=== PATIENT | male | born 1990 | race Caucasian/White ===

== ENCOUNTER 2018-07-15 13:24 | Observation (INO) | payer SELFPAY ==
[2018-07-15 14:48] LABS: BUN Blood Urea Nitrogen 12 mg/dL (7-18); Bicarbonate 28 mmol/L (21-32); Glucose Level 97 mg/dL (74-106); Potassium 3.7 mmol/L (3.5-5.1); Sodium Level 140 mmol/L (136-145)
[2018-07-15 14:57] LABS: Absolute Lymphocytes (CBC) 1.5 K/uL (0.7-4.9); Absolute Monocytes 1.1 K/uL (0.1-1.3); Absolute Neutrophil 10.1 K/uL (1.8-8.0); Basophils % 0.5 % (0-1.3); Eosinophils % 0.8 % (0-4.4); Hematocrit 38.2 % (39.6-49.0); Lymphocytes % 11.3 % (15.3-44.8); MCV 98.4 fL (80-100); MPV 7.9 fL (7.6-11.3); Monocytes % 8.3 % (3.3-12.3); RBC Red Blood Cell Count 3.89 M/uL (4.33-5.43)
[2018-07-15] MEDS ORDERED: HYDROCODONE/APAP 7.5/325 MG TAB ONE (15:12)
--- NOTE | 2018-07-15 15:45 | RAD REPORT ---
EXAM DESCRIPTION: RAD - Elbow Right 3 View - 07/15/2018 2:39 pm CLINICAL HISTORY: Elbow pain FINDINGS: Soft tissue swelling is present. A true lateral view of the elbow was not obtained limiting evaluation No gross fracture or dislocation is seen
--- NOTE | 2018-07-15 15:46 | RAD REPORT ---
EXAM DESCRIPTION: RAD - Forearm Right - 07/15/2018 2:39 pm CLINICAL HISTORY: Right arm pain FINDINGS: No fracture is seen involving the forearm.
[2018-07-15] MEDS ORDERED: CLINDAMYCIN 600MG/D5W 600 MG/50 ML BAG IV ONE (15:49)
--- NOTE | 2018-07-15 16:35 | ER ---
Nurse's Notes [facility] Name: David Russ Age: 27 yrs Sex: Male : 1990 Arrival Date: 07/15/2018 Time: 13:27 Bed 8 Private MD: Diagnosis: Cellulitis of right upper limb;Cutaneous abscess of right upper limb Presentation: 07/15 13:40 Presenting complaint: Patient states: R ELBOW INJURY. Transition of care: patient was bp not received from another setting of care. Onset of symptoms was July 11, 2018. Risk Assessment: Do you want to hurt yourself or someone else? Patient reports no desire to harm self or others. Initial Sepsis Screen: Does the patient meet any 2 criteria? HR > 90 bpm. Does the patient have a suspected source of infection? Yes: Skin breakdown/wound. Care prior to arrival: None. 13:40 Method Of Arrival: Ambulatory bp 13:40 Acuity: MIKEL 3 bp Triage Assessment: 13:41 General: Appears distressed, uncomfortable, Behavior is calm, cooperative, appropriate bp for age. Pain: Complains of pain in right elbow. Musculoskeletal: Circulation, motion, and sensation intact. Range of motion: limited in right elbow Swelling present in right elbow. Injury Description: Deformity sustained to right elbow. Historical: - Allergies: 13:41 No Known Allergies; bp - Home Meds: 13:41 None [Active]; bp - PMHx: 13:41 None; bp - Immunization history:: Last tetanus immunization: < 5 years ago. - Social history:: Smoking status: Patient uses tobacco products, smokes one pack cigarettes per day. - Ebola Screening: : Patient negative for fever greater than or equal to 101.5 degrees Fahrenheit, and additional compatible Ebola Virus Disease symptoms Patient denies exposure to infectious person Patient denies travel to an Ebola-affected area in the 21 days before illness onset No symptoms or risks identified at this time. Screenin:01 Abuse screen: Denies threats or abuse. Denies injuries from another. Nutritional ss screening: No deficits noted. Tuberculosis screening: Never had TB. Fall Risk None identified. Assessment: 14:01 General: Appears uncomfortable, Behavior is calm, cooperative, Reports chills for 0-12 ss hours, Denies fever, feeling ill, fatigue. Pain: Complains of pain in right forearm and right arm and right elbow Pain currently is 0 out of 10 on a pain scale. at worst was 10 out of 10 on a pain scale. Quality of pain is described as pressure, tender, Pain began 2-3 days ago. Is intermittent. Neuro: Level of Consciousness is awake, alert, obeys commands, Oriented to person, place, time, situation. Cardiovascular: Heart tones S1 S2 present Capillary refill < 3 seconds is brisk in bilateral fingers Patient's skin is warm and dry. Chest pain is denied. Respiratory: Airway is patent Respiratory effort is even, unlabored, Respiratory pattern is regular, symmetrical, Breath sounds are clear bilaterally. Denies cough, shortness of breath pain with respiration, pain with cough, pain with movement. GI: Abdomen is non-distended. EENT: Oral mucosa is moist. Throat is clear. Derm: large area to R elbow and forearm noted to be red, swollen and warm to touch. Pt reports an injury that occurred Saturday when he fell onto R arm after slipping in mud. Patient states that redness and pain has been getting progressively worse since injury. Patient also reports that he took a "sterile razor" from home and attempted to drain his elbow and forearm. Denies drainage. Also reports that wounds to forearm were pustules that appeared yesterday, but scrapped off the whiteheads. Musculoskeletal: Circulation, motion, and sensation intact. Range of motion: Swelling present in right forearm and right elbow. 15:00 Reassessment: Patient appears in no apparent distress at this time. No changes from ss previously documented assessment. Patient and/or family updated on plan of care and expected duration. Pain level reassessed. 16:00 Reassessment: Patient appears in no apparent distress at this time. No changes from ss previously documented assessment. Patient is alert, oriented x 3, equal unlabored respirations, skin warm/dry/pink. 17:19 Reassessment: Patient appears in no apparent distress at this time. Patient and/or ss family updated on plan of care and expected duration. Pain level reassessed. Patient is alert, oriented x 3, equal unlabored respirations, skin warm/dry/pink. 18:00 Reassessment: attempted to call report to Vy. Was told she will call back soon for ss report. 18:20 Reassessment: report called to ASHIA Mcclellan. Vital Signs: 13:43 BP 145 / 92; Pulse 110; Resp 18; Temp 98.6; Pulse Ox 100% ; Weight 65.77 kg; Height 5 bp ft. 9 in. (175.26 cm); 14:41 BP 125 / 87; Pulse 102; Resp 19; Pulse Ox 100% on R/A; jb1 15:50 Resp 17; Temp 98.9(O); ss 13:43 Body Mass Index 21.41 (65.77 kg, 175.26 cm) bp ED Course: 13:27 Patient arrived in ED. as 13:41 Triage completed. bp 13:43 Arm band placed on left wrist. bp 13:44 Berenice Greer, ELYSE is PHCP. kb 13:44 Gabino Tucker MD is Attending Physician. kb 14:01 Patient has correct armband on for positive identification. Bed in low position. Call ss light in reach. 14:10 Inserted saline lock: 20 gauge in left antecubital area, using aseptic technique. Blood ss collected. 14:35 X-ray completed. Portable x-ray completed in exam room. Patient tolerated procedure ml well. 14:36 Elbow Right 3 View XRAY In Process Unspecified. EDMS 14:37 Forearm Right XRAY In Process Unspecified. EDMS 14:40 Teodora Love, ASHIA is Primary Nurse. ss 15:29 Patient taken to ultrasound. via wheelchair. aa4 15:36 US Extrmty Nonvasular Limited In Process Unspecified. EDMS 15:44 Patient moved back from ultrasound. aa4 15:52 Ultrasound completed. Patient tolerated well. lc3 16:33 Yoly Baugh MD is Hospitalizing Provider. kb 18:22 No provider procedures requiring assistance completed. Patient admitted, IV remains in ss place. Administered Medications: 15:10 Drug: [place] (7.5 mg-325 mg) 1 tabs Route: PO; sg 16:16 Follow up: Response: No adverse reaction; Pain is decreased ss 15:49 Drug: Clindamycin 600 mg Route: IVPB; Infused Over: 30 mins; Site: left antecubital; ss 16:23 Follow up: IV Status: Completed infusion ss Outcome: 16:34 Decision to Hospitalize by Provider. kb 18:23 Admitted to ss 18:23 Condition: good 18:23 Instructed on the need for admit. 18:25 Patient left the ED. ss Signatures: Dispatcher [employer] Koko Daly jb1 Berenice Greer, MACHINE GUNNER-C MACHINE GUNNER-Ckb Anthony Rodriguez, RN RN Sandra Cullen Melissa ml Frazier, Amanda aa4 Smirch, Shelby, RN RN ss Andrae Ramsay Brian, RN RN bp
--- NOTE | 2018-07-15 16:35 | EDPHYS ---
Physician Documentation [facility] Name: David Russ Age: 27 yrs Sex: Male : 1990 Arrival Date: 07/15/2018 Time: 13:27 Bed 8 Private MD: ED Physician Gabino Tucker HPI: 07/15 14:06 This 27 yrs old Male presents to ER via Ambulatory with complaints of Arm kb Injury. 14:06 The patient or guardian complains of injury, pain, swelling, tenderness. The complaints kb affect the right elbow and right forearm. Context: The problem was sustained outdoors, resulted from a fall. Onset: The symptoms/episode began/occurred 4 day(s) ago. Treatment prior to arrival includes: no previous treatment. Modifying factors: The symptoms are alleviated by nothing. the symptoms are aggravated by movement. Associated signs and symptoms: Pertinent positives: erythema, pain, swelling, warmth. Severity of symptoms: At their worst the symptoms were moderate, severe, in the emergency department the symptoms are unchanged. The patient has not experienced similar symptoms in the past. The patient has not recently seen a physician. Pt reports he fell onto his elbow on Saturday. reports redness and swelling with intermittent pain that has been getting worse since then. Thought it was an abscess so he poked a few areas with a needle last night, but nothing came out. Full ROM. Historical: - Allergies: 13:41 No Known Allergies; bp - Home Meds: 13:41 None [Active]; bp - PMHx: 13:41 None; bp - Immunization history:: Last tetanus immunization: < 5 years ago. - Social history:: Smoking status: Patient uses tobacco products, smokes one pack cigarettes per day. - Ebola Screening: : Patient negative for fever greater than or equal to 101.5 degrees Fahrenheit, and additional compatible Ebola Virus Disease symptoms Patient denies exposure to infectious person Patient denies travel to an Ebola-affected area in the 21 days before illness onset No symptoms or risks identified at this time. ROS: 14:06 Constitutional: Negative for fever, chills, and weight loss, Cardiovascular: Negative kb for chest pain, palpitations, and edema, Respiratory: Negative for shortness of breath, cough, wheezing, and pleuritic chest pain, Abdomen/GI: Negative for abdominal pain, nausea, vomiting, diarrhea, and constipation, Back: Negative for injury and pain, : Negative for injury, bleeding, discharge, and swelling, Neuro: Negative for headache, weakness, numbness, tingling, and seizure. 14:06 MS/extremity: Positive for injury or acute deformity, erythema, pain, swelling, tenderness, warmth, of the right forearm and right elbow. 14:06 Skin: Positive for erythema, swelling, of the right forearm and right elbow. Exam: 14:06 Constitutional: This is a well developed, well nourished patient who is awake, alert, kb and in no acute distress. Head/Face: Normocephalic, atraumatic. Chest/axilla: Normal chest wall appearance and motion. Nontender with no deformity. No lesions are appreciated. Cardiovascular: Regular rate and rhythm with a normal S1 and S2. No gallops, murmurs, or rubs. Normal PMI, no JVD. No pulse deficits. Respiratory: Lungs have equal breath sounds bilaterally, clear to auscultation and percussion. No rales, rhonchi or wheezes noted. No increased work of breathing, no retractions or nasal flaring. Abdomen/GI: Soft, non-tender, with normal bowel sounds. No distension or tympany. No guarding or rebound. No evidence of tenderness throughout. MS/ Extremity: Pulses equal, no cyanosis. Neurovascular intact. Full, normal range of motion. Neuro: Awake and alert, GCS 15, oriented to person, place, time, and situation. Cranial nerves II-XII grossly intact. Motor strength 5/5 in all extremities. Sensory grossly intact. Cerebellar exam normal. Normal gait. 14:06 Skin: cellulitis, that is moderate, on the right forearm and right elbow. Vital Signs: 13:43 BP 145 / 92; Pulse 110; Resp 18; Temp 98.6; Pulse Ox 100% ; Weight 65.77 kg; Height 5 bp ft. 9 in. (175.26 cm); 14:41 BP 125 / 87; Pulse 102; Resp 19; Pulse Ox 100% on R/A; jb1 15:50 Resp 17; Temp 98.9(O); ss 13:43 Body Mass Index 21.41 (65.77 kg, 175.26 cm) bp MDM: 13:44 Patient medically screened. kb 14:06 Data reviewed: vital signs, nurses notes. Data interpreted: Pulse oximetry: on room air kb is 100 %. Interpretation: normal. 14:10 ED course: Redness, swelling, and warmth to right elbow and forearm. Pt has full ROM of kb upper extremity. Denies fever, but reports he started getting chills today. . 16:32 Counseling: I had a detailed discussion with the patient and/or guardian regarding: the kb historical points, exam findings, and any diagnostic results supporting the discharge/admit diagnosis, lab results, radiology results, the need for further work-up and treatment in the hospital. Physician consultation: Yoly Baugh MD was contacted at 16:33, regarding admission, to the medical/surgical unit. patient's condition, and will see patient in ED, shortly. 16:33 Physician consultation: Chas Knapp MD was contacted at 16:15, regarding consult, kb patient's condition, and will see patient in inpatient room. 07/15 13:53 Order name: CBC with Diff; Complete Time: 15:02 kb 07/15 13:53 Order name: Basic Metabolic Panel; Complete Time: 14:49 kb 07/15 13:53 Order name: Elbow Right 3 View XRAY; Complete Time: 15:48 kb 07/15 13:53 Order name: Blood Culture Adult (2) kb 07/15 13:53 Order name: Procalcitonin; Complete Time: 15:14 kb 07/15 13:53 Order name: Lactate; Complete Time: 14:53 kb 07/15 13:53 Order name: Forearm Right XRAY; Complete Time: 15:48 kb 07/15 13:53 Order name: IV Start; Complete Time: 14:18 kb 07/15 14:50 Order name: US Extrmty Nonvasular Limited; Complete Time: 18:11 kb Administered Medications: 15:10 Drug: [place] (7.5 mg-325 mg) 1 tabs Route: PO; sg 16:16 Follow up: Response: No adverse reaction; Pain is decreased ss 15:49 Drug: Clindamycin 600 mg Route: IVPB; Infused Over: 30 mins; Site: left antecubital; ss 16:23 Follow up: IV Status: Completed infusion ss Disposition: 07/16 18:10 Co-signature as Attending Physician, Gabino Tucker MD. gs Disposition: 07/15/18 16:34 Hospitalization ordered by Yoly Baugh for Observation. Preliminary diagnosis are Cellulitis of right upper limb, Cutaneous abscess of right upper limb. - Bed requested for Telemetry/MedSurg (observation). - Status is Observation. ss - Condition is Stable. - Problem is new. - Symptoms are unchanged. UTI on Admission? No Signatures: Dispatcher [employer] EDMS Berenice Greer, OIL FIELD PIPELINE SUPERVISOR-C OIL FIELD PIPELINE SUPERVISOR-Ckb Nereida Arredondo bd Anthony Rodriguez, ASHIA RN sg Teodora Love RN RN ss Gabino Tucker MD MD Alber Rivero, ASHIA RN bp Corrections: (The following items were deleted from the chart) 07/15 17:55 16:34 Hospitalization Ordered by Yoly Baugh MD for Observation. Preliminary diagnosis bd is Cellulitis of right upper limb; Cutaneous abscess of right upper limb. Bed requested for Telemetry/MedSurg (observation). Status is Observation. Condition is Stable. Problem is new. Symptoms are unchanged. UTI on Admission? No. kb 18:25 17:55 07/15/2018 16:34 Hospitalization Ordered by Yoly Baugh MD for Observation. ss Preliminary diagnosis is Cellulitis of right upper limb; Cutaneous abscess of right upper limb. Bed requested for Telemetry/MedSurg (observation). Status is Observation. Condition is Stable. Problem is new. Symptoms are unchanged. UTI on Admission? No. bd
--- NOTE | 2018-07-15 18:05 | RAD REPORT ---
EXAM DESCRIPTION: US - Extremity Nonvascular Limited - 07/15/2018 3:41 pm CLINICAL HISTORY: Right elbow pain and swelling COMPARISON: None FINDINGS: 2.4 x 0.8 centimeter heterogeneous fluid collection is present within the right elbow. An additional 2.5 x 0.8 centimeter heterogeneous fluid collection is also seen. Both throughout the site of injury. IMPRESSION: Two fluid collections within the right elbow largest measuring 2.5 centimeters likely re present hematomas
--- NOTE | 2018-07-15 20:39 | P.HP ---
Certification for Inpatient With expected LOS: >2 Midnights Practitioner: I am a practitioner with admitting privileges, knowledge of patient current condition, hospital course, and medical plan of care. Services: Services provided to patient in accordance with Admission requirements found in Title 42 Section 412.3 of the Code of Federal Regulations Patient History Date of Service: 07/15/18 Reason for admission: Right Upper extremity pain and swelling History of Present Illness: 27 year old male with no past medical history with complaints of an injury from a fall. States 4 days ago, he slipped and fell from a standing position. States since then his arm has gotten more red, swollen, warm and painful. No alleviating or exacerbating factors. He did try to poke the redness with a needle but states nothing comes out from it. Allergies No Known Drug Allergies Allergy (Verified 07/15/18 19:32) Unknown Home Medications: NK [No Home Meds] 07/15/18 Review of Systems General: Unremarkable Eyes: Unremarkable ENT: Unremarkable Respiratory: Unremarkable Cardiovascular: Unremarkable Gastrointestinal: Unremarkable Musculoskeletal: Arm Pain (swelling, warmth, redness) Neurological: Unremarkable Physical Examination - Vital Signs Temperature: 98.9 F Blood Pressure: 125/87 Pulse: 102 Respirations: 17 - Physical Exam General: Other (Very sleepy, unable to keep eyes open (recently receieved pain medications) but could hold normal conversation. ) HEENT: Atraumatic, Normocephalic Neck: JVD not distended Respiratory: Clear to auscultation bilaterally, Normal air movement Cardiovascular: Normal pulses, Normal S1 S2, Irregular heart rate/rhythm (Sinus tachycardia) Capillary refill: <2 Seconds Gastrointestinal: Normal bowel sounds, Soft and benign, No tenderness Musculoskeletal: Swelling, Erythema, Tenderness, Warmth, Other (Located on right forearm, starting form elbow down to mid forearm. Neurologically intact. ) Neurological: Normal speech, Normal tone, Sensation intact Lymphatics: No axilla or inguinal lymphadenopathy - Studies Laboratory Data (last 24 hrs) 07/15/18 14:10: Sodium 140, Potassium 3.7, BUN 12, Creatinine 0.90, Glucose 97 07/15/18 14:10: WBC 12.8 H, Hgb 13.2 L, Hct 38.2 L, Plt Count 195 Assessment and Plan - Plan 27 year old male with no past medical history 1) RUE Cellulitis: Ultrasound with fluid collection/possible abscess formation. Neurologically intact; Continue pain management, IV antibiotics and IVF. Dr. Knapp consulted for evaluation for I&D 2) Leukocytosis: Likely 2/2 cellulitis. Will monitor 3) Tachycardia: Possibly 2/2 pain; will continue to monitor Discharge Plan: Home Plan to discharge in: Unknown - Advance Directives Does patient have a Living Will: No Does patient have a Durable POA for Healthcare: No
[2018-07-15] MEDS ORDERED: MORPHINE 4 MG/ML SYR IV PRN (21:38)
[2018-07-15] MEDS ORDERED: VANCOMYCIN 1.25 GM in NA CHLORIDE 0.9% 250 ML IVPB SCH (23:45)
[2018-07-15] MEDS: NA CHLORIDE 0.9% 1,000 ML IV SCH (23:54)
[2018-07-16] MEDS: ACETAMINOPHEN 500 MG TAB PO PRN ×2 (00:13→20:31)
[2018-07-16] MEDS ORDERED: VANCOMYCIN 1 GM/VIAL ONE (00:28)
[2018-07-16] MEDS ORDERED: VANCOMYCIN 500 MG/VIAL ONE (00:29)
[2018-07-16] MEDS ORDERED: NA CHLORIDE 0.9% 250 ML ONE (00:36)
[2018-07-16] MEDS ORDERED: AMPICILLIN/SULBACTAM 3GM/VIAL ONE (00:47)
[2018-07-16] MEDS: AMPICILLIN/SULBACT 3 GM in NA CHLORIDE 0.9% 100 ML IVPB SCH ×6 (00:48→23:55)
[2018-07-16] MEDS ORDERED: NA CHLORIDE 0.9% 200 ML ONE (00:53)
[2018-07-16 01:35] VITALS: BMI 25.8
[2018-07-16 05:49] LABS: Absolute Lymphocytes (CBC) 1.9 K/uL (0.7-4.9); Basophils % 0.6 % (0-1.3); Eosinophils % 0.9 % (0-4.4); Hematocrit 35.4 % (39.6-49.0); Lymphocytes % 16.1 % (15.3-44.8); MCH 34.5 pg (27.0-35.0); MCV 97.9 fL (80-100); MPV 8.2 fL (7.6-11.3); Monocytes % 7.9 % (3.3-12.3); RBC Red Blood Cell Count 3.61 M/uL (4.33-5.43)
[2018-07-16 06:02] LABS: BUN Blood Urea Nitrogen 10 mg/dL (7-18); Bicarbonate 26 mmol/L (21-32); Glucose Level 130 mg/dL (74-106); Potassium 3.6 mmol/L (3.5-5.1); Sodium Level 139 mmol/L (136-145)
[2018-07-16] MEDS: NA CHLORIDE 0.9% 1,000 ML IV SCH ×2 (09:16→20:37)
[2018-07-16] MEDS ORDERED: BUPIVACAINE 0.5% PF 10 ML VIAL ONE (10:16)
[2018-07-16] MEDS ORDERED: PROPOFOL 200 MG/20 ML VIAL IV ONE (10:28)
[2018-07-16] MEDS ORDERED: LIDOCAINE 2% MPF 5 ML VIAL ONE (10:28)
[2018-07-16] MEDS ORDERED: MIDAZOLAM HCL 2 MG/2 ML INJ ONE (10:28)
[2018-07-16] MEDS ORDERED: FENTANYL CITR 100 MCG/2 ML ONE (10:28)
[2018-07-16] MEDS ORDERED: Ringers Lactate 1,000 ML IV ONE (10:38)
[2018-07-16] MEDS ORDERED: KETOROLAC 30 MG/ML INJ ONE (11:15)
--- NOTE | 2018-07-16 11:25 | P.BOP ---
Preoperative diagnosis: cellulitis,complex abscess R arm, elbow,forearm, pucture wound, s/p fall Postoperative diagnosis: same, fascitis Primary procedure: Incision and drainage of large complex abscess down to fascia of RUE Secondary procedure: [id number] Estimated blood loss: <50cc Specimen: pus, devitalized tissue including fascia and fat Findings: see dictation Anesthesia: General Transferred to: Recovery Room Condition: Good
[2018-07-16] MEDS ORDERED: HYDROCODONE/APAP 7.5/325 MG TAB PO PRN (11:41)
[2018-07-16 12:06] VITALS: O2SAT 98
--- NOTE | 2018-07-16 13:01 | OP ---
Date of Procedure: 07/16/2018 Surgeon: Chas Knapp MD Preoperative Diagnoses: Cellulitis. Complex right upper extremity abscess on the right arm, elbow, forearm, puncture wound, status post fall. Postoperative Diagnoses: Cellulitis. Complex right upper extremity abscess on the right arm, elbow, forearm, puncture wound, status post fall. Fascitis. Procedures: Incision and drainage of a large complex abscess down to fascia, right upper extremity, about 30 x 15 cm. Estimated Blood Loss: Less than 50 cc. Specimen: Pus, devitalized tissue including fascia and fat. Findings: The patient has a complex abscess. It goes down all the way down to fascia that involves part of the forearm, upper arm, and elbow region. The joint does not seem to be grossly involved at least during this evaluation. Anesthesia: General plus local. History Of Present Illness: This is a case of a 27-year-old patient. The story keeps changing. Roberto arently, he fell, got a puncture wound, happened to him, and in trying to drain that himself, develop ed into a large cellulitis area. He then came overnight to the ER to get antibiotics. The area is t reggie. We trying to get some more information about his fall. His x-rays are negative. This mornin g, he did not sign a consent yet. Apparently, as per staff, he used a knife to cut his IVs and leave the hospital, but then apparently he came back once again and he was explained once again that if he does not have this done he might lose his arm and then he decided signed a consent. It was immediat nessa and emergently brought to the OR. Had benefits, alternatives, and risks of incision and drainage of this complex abscess, fully explained which include but are not limited to infection, bleeding, d amage to adjacent structures, anesthesia complication, loss of motion, sensory deficit, KS, even deat h. He also understands this may not relieve any symptoms. He might need more than one surgical inte rvention. He was fully explained the importance of dressing changes after this. He may even have carbajal d some problem with range of motion if he does not take care of this properly. He understood, this t elvin he signed a consent, so the patient was immediately brought to the operating room, placed in supi ne position. Anesthesia was done without complication. A time-out was called. An incision was made from the arm, elbow, and forearm region. We noticed the patient to have a complex abscess. It goes all the way down to fascia. The fat comes out of the muscle, some of the fascia has to be debrided. Multiple loculations were explored opened. Intramuscular seems to be intact with no muscle abscess seen. The area was irrigated. Hemostasis obtained. Then, the area was packed with iodoform packin g, 2 inches, entire bottle. This was covered with sterile dressings on top, and the patient tolerate d the procedure well. The patient was sent to Recovery in stable condition. Local anesthetic was ap plied. Cultures were obtained. HERMILO/PRASHANTH Voice ID: [id number] Report ID: [id number]
[2018-07-16] MEDS: NICOTINE 21 MG/PAT TD SCH (14:11)
[2018-07-16] MEDS: VANCOMYCIN 1.5 GM in NA CHLORIDE 0.9% 500 ML IVPB SCH (14:11)
--- NOTE | 2018-07-16 15:19 | CON ---
Date of Consultation: 07/16/2018 Reason For Service: Right upper arm cellulitis and abscess. History Of Present Illness: This is a case of a 27-year-old patient, who claimed he fell several day s ago, slipped and fell and hit his forearm, getting an abrasion in that area, that eventually develo ped swollen, painful area. He put some needles in that he claimed was trying to drain something out of that but he could not get anything out. It got worse. He came to the ER last night. He denies a ny IV drug abuse. Denies any other trauma. Denies any dysuria, hematuria, hematochezia, or melena. Denies any chills and fever. Review of Systems: Ten points, otherwise unremarkable. Allergies: NONE. Medications: None. Surgeries: None. Social History: He smokes occasionally, drinks occasionally. No IV drug abuse per patient. Physical Examination: General: The patient is awake and alert. HEENT: Pupils are equal and reactive, anicteric. Neck: Supple. Chest: Clear. Abdomen: Soft and depressible. No guarding or rebound. Extremities: Over the right arm, patient has swelling from the proximal arm into the distal forearm with a puncture wound over the area of the proximal forearm on the right side. There is tenderness w ith limitation of motion. Neuro: Still intact with sensation of the hands and fingers still intact. No cyanosis. Laboratory Data: Blood work shows WBC count of 12, hemoglobin of 13.2, hematocrit 38.2, platelets 19 5. Potassium 3.7, bicarb 28. Extremity ultrasound interpreted by Dr. Hillman as a 2.5 cm abscess fluid collection present right t hrough the site of the puncture wound. He believes it could be hematomas, although cellulitis is pre sent in arm. The forearm x-ray per Dr. Hillman, and also elbow x-ray shows no fractures. Assessment: This is a 27-year-old patient, with the upper arm, elbow, and forearm cellulitis. No fl uctuance present. No crepitus. Consistent with an abscess. I believe those fluid collection he saw are complex abscess present. The patient needs incision and drainage now. He is thinking about it. I explained to him that if he does not give consent, he might not be able to have a surgery and he may compromise his arm or may lose his arm, he may even still lose his range of motion. He understan ds. He is thinking about it. OR was aware of the pending, whenever he signed a consent that we shou ld go ahead and do the surgery, hopefully the sooner the better. He understood the benefits, alterna tives, and risks which include but are not limited to infection, bleeding, damage to adjacent structu res, anesthesia complication, WI, even . He also understands this may not relieve any symptoms. He might need more than one surgical intervention, and he will require wound care. He was fully ex plained what that means. HERMILO/PRASHANTH Voice ID: [id number] Report ID: [id number]
[2018-07-16] MEDS: MORPHINE 4 MG/ML SYR IV PRN ×3 (17:22→23:55)
--- NOTE | 2018-07-16 19:57 | P.PN ---
Subjective Date of Service: 07/16/18 Chief Complaint: Right Upper extremity pain and swelling Patient seen and examined at bedside. No family at bedside. Patient states pain is tolerable with pain medications. He was afebrile overnight and reports no chills or subjective fevers. Reports no other complaints or concerns this morning Physical Examination - Vital Signs Temperature: 98.3 F Blood Pressure: 134/74 Pulse: 88 Respirations: 20 Pulse Ox (%): 100 - Physical Exam General: Alert, In no apparent distress, Oriented x3 HEENT: Normocephalic Neck: JVD not distended Respiratory: Clear to auscultation bilaterally, Normal air movement Cardiovascular: Normal pulses, Regular rate/rhythm Gastrointestinal: Normal bowel sounds, Soft and benign Musculoskeletal: Swelling, Erythema, Tenderness, Warmth, Other (On right upper extremity starting from elbow going down to mid forearm) Assessment And Plan - Plan 27 year old male with no past medical history 1) RUE Cellulitis: Ultrasound with fluid collection/possible abscess formation. Neurologically intact; Continue pain management, IV antibiotics and IVF. Pending I&D with Dr. Knapp. Depending on I&D, patient may need long-term antibiotics. Infectious disease consulted for recommendations. 2) Leukocytosis: Likely 2/2 cellulitis. Will monitor 3) Tachycardia: Improved. Possibly 2/2 pain; will continue to monitor 4) current tobacco use: Educated and counseled patient. Also explained that this is a nonsmoking facility. Ordered nicotine patch. Plan to discharge in: Unknown
[2018-07-17] MEDS: VANCOMYCIN 1.5 GM in NA CHLORIDE 0.9% 500 ML IVPB SCH (01:00)
[2018-07-17] MEDS: MORPHINE 4 MG/ML SYR IV PRN ×3 (03:04→08:09)
[2018-07-17] MEDS: NA CHLORIDE 0.9% 1,000 ML IV SCH (05:45)
[2018-07-17] MEDS: AMPICILLIN/SULBACT 3 GM in NA CHLORIDE 0.9% 100 ML IVPB SCH (06:16)
[2018-07-17] MEDS: NICOTINE 21 MG/PAT TD SCH (08:10)
[2018-07-17 09:44] VITALS: BP 128/71; TEMP 98.8
== END 2018-07-17 10:00 | disposition home or self-care (01) ==
LOC: ER 13:24 → ERHOLD 16:38 → 2ND 18:12
PROVIDERS: ADMIT Family Medicine; ATTEND Family Medicine
PROC: 0J9G0ZZ Drainage of Right Lower Arm Subcutaneous Tissue and Fascia, Open Approach (ICD-10-PCS; principal; 2018-07-16 13:15)
DX: L02.413 Cutaneous abscess of right upper limb (principal); L03.113 Cellulitis of right upper limb; M72.9 Fibroblastic disorder, unspecified; S41.131A Puncture wound without foreign body of right upper arm, initial encounter; R00.0 Tachycardia, unspecified; F17.210 Nicotine dependence, cigarettes, uncomplicated
CPT/HCPCS: 36415; 76882; 80048; 83605; 84145; 85025; 87040; 87070; 87075; 87077; 87186; 87205; 88304; 96365; 99285; G0378; J0295; J2250; J3010; J7030

== ENCOUNTER 2019-01-19 13:27 | Emergency (ER) | payer SELFPAY ==
--- NOTE | 2019-01-19 13:42 | EDPHYS ---
Physician Documentation [facility] Name: David Russ Age: 28 yrs Sex: Male : 1990 Arrival Date: 01/19/2019 Time: 13:28 Bed 7 Private MD: ED Physician Natan Moreira HPI: 01/19 13:32 This 28 yrs old Male presents to ER via Unassigned with complaints of Psych kb Problem. 13:32 The patient presents to the emergency department with a history of a suicide gesture, kb wrapped seat belt around neck in the back of PD unit, suicide ideation, and the patient has a plan, to hang oneself. Onset: The symptoms/episode began/occurred today. Associated signs and symptoms: Pertinent positives; suicide ideation. Severity of symptoms: At their worst the symptoms were moderate in the emergency department the symptoms are unchanged. The patient has not experienced similar symptoms in the past. The patient has not recently seen a physician. Pt was arrested in [place] and was being transported to [facility] when he wrapped the seatbelt around his neck stating he was going to kill himself. Officers report they pulled over and stopped pt, pt did not lose consciousness, stop breathing or have any color changes. They brought pt in to be cleared to continue to [facility]. Pt reports "I don't want to kill myself, I am going to kill myself." Pt will not give history, states "They know everything about me so they can answer your questions.". Historical: - Allergies: 13:36 NKA; iw - Home Meds: 13:36 None [Active]; iw - PMHx: 13:36 None; iw - PSHx: 13:36 None; iw - Immunization history:: Adult Immunizations unknown. - Social history:: Smoking status: unknown. - Ebola Screening: : Patient denies travel to an Ebola-affected area in the 21 days before illness onset. ROS: 13:38 Constitutional: Negative for fever, chills, and weight loss, ENT: Negative for injury, kb pain, and discharge, Neck: Negative for injury, pain, and swelling, Cardiovascular: Negative for chest pain, palpitations, and edema, Respiratory: Negative for shortness of breath, cough, wheezing, and pleuritic chest pain, Abdomen/GI: Negative for abdominal pain, nausea, vomiting, diarrhea, and constipation, Back: Negative for injury and pain, : Negative for injury, bleeding, discharge, and swelling, Skin: Negative for injury, rash, and discoloration, Neuro: Negative for headache, weakness, numbness, tingling, and seizure. 13:38 MS/extremity: Positive for pain, of the right forearm. Exam: 13:38 Constitutional: This is a well developed, well nourished patient who is awake, alert, kb and in no acute distress. Head/Face: Normocephalic, atraumatic. ENT: Nares patent. No nasal discharge, no septal abnormalities noted. Tympanic membranes are normal and external auditory canals are clear. Oropharynx with no redness, swelling, or masses, exudates, or evidence of obstruction, uvula midline. Mucous membranes moist. Neck: Trachea midline, no thyromegaly or masses palpated, and no cervical lymphadenopathy. Supple, full range of motion without nuchal rigidity, or vertebral point tenderness. No Meningismus. Chest/axilla: Normal chest wall appearance and motion. Nontender with no deformity. No lesions are appreciated. Cardiovascular: Regular rate and rhythm with a normal S1 and S2. No gallops, murmurs, or rubs. Normal PMI, no JVD. No pulse deficits. Respiratory: Lungs have equal breath sounds bilaterally, clear to auscultation and percussion. No rales, rhonchi or wheezes noted. No increased work of breathing, no retractions or nasal flaring. Abdomen/GI: Soft, non-tender, with normal bowel sounds. No distension or tympany. No guarding or rebound. No evidence of tenderness throughout. MS/ Extremity: Pulses equal, no cyanosis. Neurovascular intact. Full, normal range of motion. Neuro: Awake and alert, GCS 15, oriented to person, place, time, and situation. Cranial nerves II-XII grossly intact. Motor strength 5/5 in all extremities. Sensory grossly intact. Cerebellar exam normal. Normal gait. 13:38 Skin: injury, abrasion(s), small abrasion noted, of the right forearm, from handcuffs. Vital Signs: 13:34 BP 140 / 82; Pulse 97; Resp 18 S; Temp 98.3(TE); Pulse Ox 100% on R/A; Weight 65.77 kg; iw Height 5 ft. 8 in. (172.72 cm); 13:34 Body Mass Index 22.05 (65.77 kg, 172.72 cm) iw MDM: 13:30 Patient medically screened. kb 13:31 Data reviewed: vital signs, nurses notes. Data interpreted: Pulse oximetry: on room air kb is 100 %. Interpretation: normal. Counseling: I had a detailed discussion with the patient and/or guardian regarding: the historical points, exam findings, and any diagnostic results supporting the discharge/admit diagnosis, the need for outpatient follow up, a psychiatrist, to return to the emergency department if symptoms worsen or persist or if there are any questions or concerns that arise at home. 13:40 ED course: No resp distress noted. Pt talking in complete sentences without difficulty. No ligature bhardwaj on neck or any other signs of trauma noted. ED course: Pt will be discharged into police custody to be on suicide watch at replaced by [facility]. 14:01 Data reviewed: I have discussed the patient's presentation/case with the attending Emergency Department Physician;. Administered Medications: No medications were administered Disposition: 15:04 Co-signature as Attending Physician, Natan Moreira MD I agree with the assessment and [facility] plan of care. Disposition: 01/19/19 13:42 Discharged to Law Enforcement. Impression: Suicidal ideations. - Condition is Stable. - Discharge Instructions: Suicidal Feelings: How to Help Yourself. - Medication Reconciliation Form, Thank You Letter, Antibiotic Education, Prescription Opioid Use form. - Follow up: Emergency Department; When: As needed; Reason: Worsening of condition. Follow up: Private Physician; When: 2 - 3 days; Reason: Recheck today's complaints, Continuance of care, Re-evaluation by your physician. Signatures: Berenice Greer, NAIL ASSEMBLY MACHINE OPERATOR-C NAIL ASSEMBLY MACHINE OPERATOR-Ckb Natan Moreira MD MD cha Williams, Irene, RN RN iw Radhika New RN RN tw2 Corrections: (The following items were deleted from the chart) 13:39 13:38 MS/extremity: Positive for pain, of the left forearm, [facility] 13:41 13:40 ED course: Pt will be discharged into police custody. Will be on suicide watch at [facility]. 13:51 13:42 01/19/2019 13:42 Discharged to Law Enforcement. Impression: Suicidal ideations. tw2 Condition is Stable. Forms are Medication Reconciliation Form, Thank You Letter, Antibiotic Education, Prescription Opioid Use. Follow up: Emergency Department; When: As needed; Reason: Worsening of condition. Follow up: Private Physician; When: 2 - 3 days; Reason: Recheck today's complaints, Continuance of care, Re-evaluation by your physician. kb
--- NOTE | 2019-01-19 13:42 | ER ---
Nurse's Notes [facility] Name: David Russ Age: 28 yrs Sex: Male : 1990 Arrival Date: 01/19/2019 Time: 13:28 Bed 7 Private MD: Diagnosis: Suicidal ideations Presentation: 01/19 13:31 Presenting complaint: [place] [employer] arrested pt for aggravated assault/aggravated iw robbery, en route to [facility] pt tried to wrap the seat belt around his neck twice, pt arrives to ER in police custody, handcuffed/restrained, pt needs to be medically cleared to be sent back to [facility]. Transition of care: patient was not received from another setting of care. Onset of symptoms was January 19, 2019. Risk Assessment: Do you want to hurt yourself or someone else? Patient reports desire/thoughts of hurting themselves or someone else. Provider notified. Initial Sepsis Screen: Does the patient meet any 2 criteria? No. Patient's initial sepsis screen is negative. Does the patient have a suspected source of infection? No. Patient's initial sepsis screen is negative. Care prior to arrival: None. 13:31 Method Of Arrival: Law Enforcement: [place] [employer] iw 13:31 Acuity: MIKEL 3 iw Triage Assessment: 13:31 General: Appears in no apparent distress. unkempt, Behavior is cooperative. Pain: tw2 Denies pain. Historical: - Allergies: 13:36 NKA; iw - Home Meds: 13:36 None [Active]; iw - PMHx: 13:36 None; iw - PSHx: 13:36 None; iw - Immunization history:: Adult Immunizations unknown. - Social history:: Smoking status: unknown. - Ebola Screening: : Patient denies travel to an Ebola-affected area in the 21 days before illness onset. Screenin:50 Abuse screen: Denies threats or abuse. Nutritional screening: No deficits noted. tw2 Tuberculosis screening: Fall Risk None identified. Assessment: 13:32 General: Appears in no apparent distress. unkempt, Behavior is cooperative. tw2 Cardiovascular: Patient's skin is warm and dry. Respiratory: Airway is patent Respiratory effort is even, unlabored, Respiratory pattern is regular, agonal. GI: No signs and/or symptoms were reported involving the gastrointestinal system. : Musculoskeletal: Circulation, motion, and sensation intact. pt is in handcuffs and device around legs and waist with [employer] custody. Vital Signs: 13:34 BP 140 / 82; Pulse 97; Resp 18 S; Temp 98.3(TE); Pulse Ox 100% on R/A; Weight 65.77 kg; iw Height 5 ft. 8 in. (172.72 cm); 13:34 Body Mass Index 22.05 (65.77 kg, 172.72 cm) ED Course: 13:28 Patient arrived in ED. iw 13:28 Bed in low position. Call light in reach. officers at bedside at this time. tw2 13:30 Berenice Greer FNP-C [facility]. kb 13:30 Natan Moreira MD is Attending Physician. kb 13:30 Susan Nunez, RN is Primary Nurse. iw 13:31 Arm band placed on. tw2 13:34 Triage completed. iw 13:49 No provider procedures requiring assistance completed. Patient did not have IV access tw2 during this emergency room visit. Administered Medications: No medications were administered Outcome: 13:42 Discharge ordered by . kb 13:49 Discharged to Law Enforcement tw2 13:49 Condition: stable 13:49 Discharge instructions given to police, [facility] Officer Kimmy Instructed on discharge instructions, follow up and referral plans. 13:51 Patient left the ED. tw2 Signatures: Berenice Greer FNP-C FNP-Susan Wang, RN RN iw Radhika New RN RN tw2
[2019-01-19 15:00] VITALS: BP 140/82; TEMP 98.3; O2SAT 100
== END 2019-01-19 13:51 ==
LOC: ER 13:27
DX: R45.851 Suicidal ideations (principal)
CPT/HCPCS: 99281